=== PATIENT | female | born 1990 | race African-American/Black ===

== ENCOUNTER 2018-01-01 14:24 | Emergency (ER) | payer OTHER ==
[2018-01-01] VITALS (12 sets, daily range): PULSE 87–102
[~2018-01-01] VITALS: Ht 165.1 cm; Wt 90.7 kg
[~2018-01-01 14:24] MED LIST: PREN1CHW3 PO
--- NOTE | 2018-01-01 15:24 | PD ---
HPI Chief Complaint Dizziness, lightheadedness, dyspnea Date Seen: January 01, 2018 Travel History International Travel<30 Days: No Contact w/Intl Traveler<30Days: No Known Affected Area: No History of Present Illness HPI The patient is a pleasant 27-year-old at 25/5 weeks gestation who presents to OB triage with complaints of dizziness and lightheadedness as well as mild dyspnea beginning earlier today around 11:00. 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 She began to feel dizzy and lightheaded which prompted her evaluation here in the ED. She denies any recent sick symptoms, denies fevers or cough. She states her thus far has been uncomplicated. She denies any leakage or gush of fluid. She denies contractions. Endorses positive movements. She otherwise does not report any specific complaints or concerns. History Past Medical History Medical History: Denies Significant Hx Obstetric History Obstetric History [id number] One prior delivery One prior elective One prior miscarriage One loss at 20 weeks gestation Past Surgical History Surgical History: No Previous Surgery Family History Family History: Negative Social History Alcohol Use: No Tobacco Use: No Substance Abuse: No Allergies-Medications (Allergen,Severity, Reaction): Coded Allergies: No Known Allergies (Unverified , 04/16/16) Home Meds Active Scripts W/ Vit [id number]-Chol (Prena1 Chew 1.4 mg) 1 Chw Chw, 1 CHEW PO DAILY for PRe, #30 BOTTLE 11 Refills Prov:Abhinav Madsenvirgilio MOROCHO 10/31/15 Review of Systems Except as stated in HPI: all other systems reviewed are Neg Physical Exam Narrative GENERAL: Well-nourished, well-developed patient. SKIN: Warm and dry. HEAD: Normocephalic and atraumatic. EYES: No scleral icterus. No injection or drainage. ENT: No nasal drainage noted. Mucous membranes pink. Airway patent. NECK: Supple, trachea midline. No JVD. CARDIOVASCULAR: Regular rate and rhythm without murmurs, gallops, or rubs. RESPIRATORY: Breath sounds equal bilaterally, no w/r/r. No accessory muscle use. ABDOMEN/GI: Abdomen soft, non-tender, bowel sounds present, no rebound, no guarding Gravid to 25 weeks size GENITOURINARY: External Genitalia: intact and normal in appearance Cervix: [-] Dilatation: [-] Effacement: [-] Station: [-] Presentation: [-] Membranes: [-] Uterine Contractions: [-] FHT's: Category: [-] Baseline: 140s Reactive: +accels Variability: moderate Decels: [-] EXTREMITIES: No cyanosis or edema. BACK: Nontender without obvious deformity. No CVA tenderness. NEUROLOGICAL: Awake and alert. Motor and sensory grossly within normal limits. Normal speech. Data Data Vital Signs Reviewed: Yes Orders Orders Vital Signs (Adult) .ON ADMISSION (01/01/18 15:15) ^ Labor Status (01/01/18 15:15) ^ Non Stress Test (01/01/18 15:15) ^ Hydration (01/01/18 15:15) MDM Medical Record Reviewed: Yes Plan 27-year-old at 25/5 weeks gestation evaluated in OB triage with complaints of dizziness and lightheadedness as well as mild dyspnea. 1. Dizziness - Patient orally hydrated, encouraged good PO hydration as an outpatient - Urine dip normal, sp gravity within normal limits with no ketones - Symptoms improved s/p po hydration - Discussed with patient symptoms that would prompt a return visit to OB triage for reevaluation 2. IUP - No LOF, no contractions, +FM - Reactive FHT - Recommended continued follow up with her primary OB provider roya Field Diagnosis Diagnosis: Primary Impression: 25 weeks gestation of Disposition: DISCHARGE HOME Condition: Stable Patient Instructions: General Instructions Departure Forms: Tests/Procedures, Work Release Enter return to work date: January 02, 2018 Special Instructions: Please allow the patient to modify her work schedule to either work shorter hours daily, taking 2-3 breaks if working a whole day with each break consisting of 15-30 minutes, or allow the patient to be seated for some parts of her job due to her . Erik Pagan MD R2 January 01, 2018 15:24
== END 2018-01-01 16:27 | disposition home or self-care (01) ==
LOC: HOBED 14:24
DX: O26.892 Other specified pregnancy related conditions, second trimester (principal); R06.00 Dyspnea, unspecified; R42 Dizziness and giddiness; Z3A.25 25 weeks gestation of pregnancy
CPT/HCPCS: 99282

== ENCOUNTER → 2018-01-09 | Outpatient (CLI) | payer OTHER | LOC: HPND 08:50 | PROVIDERS: ATTEND Obstetrics & Gynecology | DX: O34.32 Maternal care for cervical incompetence, second trimester (principal); O09.212 Supervision of pregnancy with history of pre-term labor, second trimester; O09.292 Supervision of pregnancy with other poor reproductive or obstetric history, second trimester | CPT/HCPCS: 76805 ==

== ENCOUNTER → 2018-01-22 | Outpatient (CLI) | payer OTHER | LOC: HPND 08:03 | PROVIDERS: ATTEND Obstetrics & Gynecology | DX: O09.213 Supervision of pregnancy with history of pre-term labor, third trimester (principal) | CPT/HCPCS: 76815; 76817 ==

== ENCOUNTER → 2018-02-13 | Outpatient (CLI) | payer OTHER | LOC: HPND 10:08 | PROVIDERS: ATTEND Obstetrics & Gynecology | DX: O34.32 Maternal care for cervical incompetence, second trimester (principal); O09.293 Supervision of pregnancy with other poor reproductive or obstetric history, third trimester; O09.213 Supervision of pregnancy with history of pre-term labor, third trimester | CPT/HCPCS: 76816 ==

== ENCOUNTER 2018-03-22 02:49 | Inpatient (IN) ==
[2018-03-22] MEDS ORDERED: Sod Chloride 0.9% Inj 1,000 ML IV.CONT PRN (03:15)
[2018-03-22] MEDS ORDERED: Sodium Chlor 0.9% Inj 500 ML IV.SIG PRN (03:15)
[2018-03-22] MEDS ORDERED: fentaNYL Citrate Inj 100 MCG/2 ML Ampul IV.PUSH PRN ×2 (03:15)
[2018-03-22] MEDS ORDERED: Oxytocin 30 Units/500ml Premix 30 UNITS/500 ML BAG IV.SIG ONE (03:15)
[2018-03-22] MEDS ORDERED: Citric Acid/Sodium Citrate Liq 30 ML UDC PO SCH (03:15)
[2018-03-22] MEDS ORDERED: Naloxone Inj 0.4 MG/ML Vial IV.PUSH PRN (03:15)
--- NOTE | 2018-03-22 03:27 | ED ---
History of Present Illness Primary Care Physician: UNKNOWN Chief Complaint: contractions History of Present Illness: 28 yo presents at 37 wks c/o painful, regular contractions for the last 2 hours. has been uncomplicated. +FM, denies LOF or vaginal bleeding. 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 Review of Systems All other systems reviewed negative except as stated in HPI [facility] - Medical / Surgical Hx Neg / Unobtainable Medical Problems Denied: Yes Surgical History: No Previous Surgery - Tobacco History Smoking Status: Never smoker - Alcohol History How Often Do You Have a Drink Containing Alcohol: Never (since ) - Substance Use History Substance History: No History of Abuse - Travel History History of Recent Travel: No Medications and Allergies Active Medications: Active Medications Citric Acid/Sodium Citrate (Sodium Citrate/Citric Acid Liq) 30 ml PO [facility] Stop: 03/26/18 03:14 Fentanyl Citrate (Fentanyl Inj) 50 mcg IV.PUSH Q1H PRN PRN Reason: Pain Scale 3 - 5 Fentanyl Citrate (Fentanyl Inj) 100 mcg IV.PUSH Q1H PRN PRN Reason: PAIN SCALE 6 TO 10 Lactated Ringer's (Lr 1000 Ml Inj) 1,000 mls @ 125 mls/hr IV.CONT .Q8H ORIN Lactated Ringer's (Lr 1000 Ml Inj) 1,000 mls @ 3,000 mls/hr IV.SIG UNSCH PRN PRN Reason: compromise or epidural Sodium Chloride (Ns Inj) 500 mls @ 1,000 mls/hr IV.SIG UNSCH PRN PRN Reason: SEE LABEL COMMENTS Sodium Chloride (Ns Inj) 1,000 mls @ 100 mls/hr IV.CONT .Q10H PRN PRN Reason: SEE LABEL COMMENTS Oxytocin (Pitocin 30 Units/Ns 500 Ml Premix) 30 units in 500 mls @ 999 mls/hr IV.SIG BOLUS ONE Stop: 03/22/18 03:45 Lidocaine HCl (Xylocaine 1% Inj) 0.1 ml I-DERMAL PRN PRN PRN Reason: For IV start Stop: 03/25/18 03:14 Lidocaine HCl (Xylocaine 1% Inj) 10 ml INFILTRATN PRN PRN PRN Reason: For episiotomy repair Stop: 03/24/18 03:14 Mineral Oil (Muri-Lube Oil) 10 ml TOPICAL PRN PRN PRN Reason: PRN perineal massage Allergies Allergy/AdvReac Type Severity Reaction Status Date / Time No Known Allergies Allergy none Uncoded 03/20/18 21:13 Home Medications Medication Instructions Recorded Confirmed Type PNV 29-1 1 tab PO DAILY 03/20/18 03/20/18 History Exam Vital signs: Vital Signs 03/22/18 03:12 03/22/18 03:13 Temperature 98.2 F Pulse Rate 95 H Respiratory Rate 18 Blood Pressure 99/70 L - Constitutional no acute distress - Routine Neck Exam Present: supple - Routine Respiratory Exam Present: CTA bilaterally - Routine Abdominal Exam Present: soft, normoactive bowel sounds - Routine Exam Comments: sve 6/80/-2, vtx FHTs 130s, cat 1 tracing toco q 2-4 min Assessment and Plan - Diagnosis (1) Labor established Status: Acute Plan: admit epidural prn GBS neg Discharge Plan - Physicians Team ED Provider: Clifford Mccarty Primary Care Provider: UNKNOWN, - Rxs /Orders / Referrals /Forms Prescriptions: No Action PNV 29-1 1 tab PO DAILY - Discharge Instructions Print Language: Turkish
[2018-03-22 04:06] LABS: Baso % (Auto) 0.3 % (0.0-2.0); Eos # (Auto) 0.1 th/mm3 (0.0-0.4); Hematocrit 34.9 % (35.0-46.0); Hemoglobin 11.6 gm/dL (11.6-15.3); Lymph # (Auto) 1.9 th/mm3 (1.0-4.8); Lymph % (Auto) 28.6 % (9.0-44.0); Mean Corpuscular HGB Conc 33.2 % (32.0-36.0); Mean Corpuscular Hemoglobin 27.5 pg (27.0-34.0); Mean Corpuscular Volume 82.8 fL (80.0-100.0); Mean Platelet Volume 8.8 fL (7.0-11.0); Mono # (Auto) 0.4 th/mm3 (0.0-0.9); Mono % (Auto) 6.4 % (0.0-8.0); Neut # (Auto) 4.3 th/mm3 (1.8-7.7); Neut % (Auto) 63.7 % (16.0-70.0); Platelet Count 216 th/mm3 (150-450); Red Blood Count 4.22 mil/mm3 (4.00-5.30); Red Cell Distribution Width 15.3 % (11.6-17.2); White Blood Count 6.8 th/mm3 (4.0-11.0)
[2018-03-22] MEDS ORDERED: fentaNYL 2MCG-Bupiv 0.125% Epi 150 ML EPIDURAL ONE (04:06)
[2018-03-22 04:18] LABS: Amphetamine Urine With Conf Neg (Neg); Benzodiazepine Urine With Conf Neg (Neg)
--- NOTE | 2018-03-22 10:08 | P.HPOB ---
Patient Name: Andrea Williamson Date of : 89 Patient Status: Inpatient Attending Provider: Clifford Mccarty Date: 03/22/18 03:17 Initialization Date: 03/22/18 03:17 History of Present Illness Primary Care Physician: UNKNOWN Chief Complaint: contractions History of Present Illness: 28 yo presents at 37 wks c/o painful, regular contractions for the last 2 hours. has been uncomplicated. +FM, denies LOF or vaginal bleeding. 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 Review of Systems All other systems reviewed negative except as stated in HPI [facility] - Medical / Surgical Hx Neg / Unobtainable Medical Problems Denied: Yes Surgical History: No Previous Surgery - Tobacco History Smoking Status: Never smoker - Alcohol History How Often Do You Have a Drink Containing Alcohol: Never (since ) - Substance Use History Substance History: No History of Abuse - Travel History History of Recent Travel: No Medications and Allergies Active Medications: Active Medications Citric Acid/Sodium Citrate (Sodium Citrate/Citric Acid Liq) 30 ml PO [employer] [facility] Stop: 03/26/18 03:14 Fentanyl Citrate (Fentanyl Inj) 50 mcg IV.PUSH Q1H PRN PRN Reason: Pain Scale 3 - 5 Fentanyl Citrate (Fentanyl Inj) 100 mcg IV.PUSH Q1H PRN PRN Reason: PAIN SCALE 6 TO 10 Lactated Ringer's (Lr 1000 Ml Inj) 1,000 mls @ 125 mls/hr IV.CONT .Q8H [facility] Lactated Ringer's (Lr 1000 Ml Inj) 1,000 mls @ 3,000 mls/hr IV.SIG UNSCH PRN PRN Reason: compromise or epidural Sodium Chloride (Ns Inj) 500 mls @ 1,000 mls/hr IV.SIG UNSCH PRN PRN Reason: SEE LABEL COMMENTS Sodium Chloride (Ns Inj) 1,000 mls @ 100 mls/hr IV.CONT .Q10H PRN PRN Reason: SEE LABEL COMMENTS Oxytocin (Pitocin 30 Units/Ns 500 Ml Premix) 30 units in 500 mls @ 999 mls/hr IV.SIG BOLUS ONE Stop: 03/22/18 03:45 Lidocaine HCl (Xylocaine 1% Inj) 0.1 ml I-DERMAL PRN PRN PRN Reason: For IV start Stop: 03/25/18 03:14 Lidocaine HCl (Xylocaine 1% Inj) 10 ml INFILTRATN PRN PRN PRN Reason: For episiotomy repair Stop: 03/24/18 03:14 Mineral Oil (Muri-Lube Oil) 10 ml TOPICAL PRN PRN PRN Reason: PRN perineal massage Allergies Allergy/AdvReac Type Severity Reaction Status Date / Time No Known Allergies Allergy none Uncoded 03/20/18 21:13 Home Medications Medication Instructions Recorded Confirmed Type PNV 29-1 1 tab PO DAILY 03/20/18 03/20/18 History Exam Vital signs: Vital Signs 03/22/18 03:12 03/22/18 03:13 Temperature 98.2 F Pulse Rate 95 H Respiratory Rate 18 Blood Pressure 99/70 L - Constitutional no acute distress - Routine Neck Exam Present: supple - Routine Respiratory Exam Present: CTA bilaterally - Routine Abdominal Exam Present: soft, normoactive bowel sounds - Routine Exam Comments: sve 6/80/-2, vtx FHTs 130s, cat 1 tracing toco q 2-4 min Assessment and Plan - Diagnosis (1) Labor established Status: Acute Plan: admit epidural prn GBS neg Discharge Plan - Physicians Team ED Provider: Clifford Mccarty Primary Care Provider: UNKNOWN, - Rxs /Orders / Referrals /Forms Prescriptions: No Action PNV 29-1 1 tab PO DAILY - Discharge Instructions Print Language: Nigerian
--- NOTE | 2018-03-22 10:10 | P.OBLABOR ---
Subjective Interval history: pt comfortable with contractions Objective Vital Signs: Vital Signs - 8 hr 03/22/18 03:12 03/22/18 03:13 03/22/18 03:31 Temperature 98.2 F Pulse Rate 95 H 106 H Respiratory Rate 18 Blood Pressure 99/70 L 111/73 03/22/18 03:45 03/22/18 04:10 03/22/18 04:25 Temperature 98.1 F Pulse Rate 97 H 96 H Respiratory Rate 18 Blood Pressure 106/65 03/22/18 04:30 03/22/18 04:45 03/22/18 05:00 Temperature Pulse Rate 88 83 Respiratory Rate 16 16 Blood Pressure 113/71 112/76 03/22/18 06:00 03/22/18 07:00 03/22/18 07:20 Temperature 97.5 F L Pulse Rate 84 86 84 Respiratory Rate 12 18 Blood Pressure 112/80 114/70 106/73 03/22/18 07:54 03/22/18 08:00 03/22/18 08:54 Temperature Pulse Rate 88 Respiratory Rate 18 18 Blood Pressure 112/73 03/22/18 09:00 03/22/18 09:01 03/22/18 09:51 Temperature 98.2 F Pulse Rate 89 100 H Respiratory Rate 18 Blood Pressure 114/68 130/83 03/22/18 09:55 03/22/18 10:00 Temperature Pulse Rate 97 H 103 H Respiratory Rate Blood Pressure 117/68 121/70 Objective: Pelvic Exam: Cervix: [-] Dilatation: [-] Effacement: [-] Station: [-] Presentation: [-] Membranes: [intact or ruptured] Uterine Contractions: [-] FHT's: Category: [-] Baseline: [-] Reactive: [-] Variability: [-] Decels: [-] Artificial Rupture of Membrane: Yes Artificial ROM Date: 03/22/18 Artificial ROM Time: 07:30 Assessment and Plan - Diagnosis (1) Labor established Status: Acute Plan: epidural prn GBS neg
[2018-03-22] MEDS ORDERED: fentaNYL Citrate Inj 100 MCG/2 ML Ampul EPIDURAL ONE (12:00)
[2018-03-22] MEDS ORDERED: fentaNYL 2MCG-Bupiv 0.125% Epi 150 ML EPIDURAL PRN (12:00)
[2018-03-22] MEDS ORDERED: Oxytocin 30 Units/500ml Premix 30 UNITS/500 ML BAG ONE (12:49)
--- NOTE | 2018-03-22 14:11 | P.OBDELI ---
Weeks Gestation: 37 Episiotomy: none Vaginal Delivery: Spontaneous Presentation: Occiput anterior Nuchal Cord: None Delayed Cord Clamping (45 sec): Yes Placenta: Spontaneous delivery, Intact Laceration: None Estimated blood loss (mL): 150 : Male Male A Delivery Date: 03/22/18 Infant Delivery Time: 13:59 score (1 min): 8 score (5 min): 8 Attestation Attestation: The exam, history, and the medical decision-making described in the above note were completed with the assistance of the resident physician. I reviewed and agree with the findings presented. I attest that I had a [id number] encounter with the patient on the same day, and personally performed and documented my assessment and findings in the medical record.
[2018-03-22] MEDS ORDERED: Bisacodyl 10 MG Supp RECTAL PRN (14:44)
[2018-03-22] MEDS ORDERED: Witch Hazel 50%/Glyderin 12.5% 40 Pad Jar RECTAL PRN (14:44)
[2018-03-22] MEDS ORDERED: Benzocaine 20% Top Spray 60 ML Can TOPICAL PRN (14:44)
[2018-03-22] MEDS ORDERED: Acetaminophen 325 MG Tablet PO PRN (14:44)
[2018-03-22] MEDS: Ibuprofen 400 MG Tablet PO PRN (15:05)
[2018-03-22] MEDS ORDERED: Zolpidem Tartrate 5 MG Tablet PO PRN (21:00)
[2018-03-22] MEDS ORDERED: Senna/Docusate Sodium 8.6/50 MG Tablet PO SCH (21:00)
--- NOTE | 2018-03-23 07:13 | P.PNOB ---
Subjective Interval history: Patient is a 28-year-old delivered at 37 weeks and 1 days. Patient is day 1 after . Patient's pain is well-controlled. Patient reports eating and drinking without any nausea or vomiting. Patient reports minimal bleeding. Patient has passed gas but no bowel movements. Patient is walking without lower extremity pain or shortness of breath. Patient reports desire for contraception and breast-feeding. Objective Vital Signs/I&O: Vital Signs 03/22/18 07:20 03/22/18 07:54 03/22/18 08:00 Temperature 97.5 F L Pulse Rate 84 88 Respiratory Rate 18 18 Blood Pressure 106/73 112/73 03/22/18 08:54 03/22/18 09:00 03/22/18 09:01 Temperature 98.2 F Pulse Rate 89 Respiratory Rate 18 18 Blood Pressure 114/68 03/22/18 09:51 03/22/18 09:55 03/22/18 10:00 Temperature Pulse Rate 100 H 97 H 103 H Respiratory Rate Blood Pressure 130/83 117/68 121/70 03/22/18 10:30 03/22/18 11:01 03/22/18 11:30 Temperature Pulse Rate 74 79 82 Respiratory Rate Blood Pressure 106/67 95/56 L 92/58 L 03/22/18 12:00 03/22/18 12:31 03/22/18 12:38 Temperature 97.7 F Pulse Rate 73 89 Respiratory Rate 18 Blood Pressure 105/65 126/102 H 03/22/18 12:40 03/22/18 13:15 03/22/18 13:30 Temperature Pulse Rate 83 86 84 Respiratory Rate 18 Blood Pressure 110/64 110/62 119/74 03/22/18 14:01 03/22/18 14:10 03/22/18 14:11 Temperature 98.5 F Pulse Rate 128 H Respiratory Rate 18 Blood Pressure 106/50 L 110/71 03/22/18 14:21 03/22/18 14:31 03/22/18 14:45 Temperature Pulse Rate 106 H 97 H Respiratory Rate 18 18 Blood Pressure 110/66 128/68 03/22/18 14:46 03/22/18 15:00 03/22/18 16:21 Temperature 98.7 F Pulse Rate 94 H 85 Respiratory Rate 18 18 Blood Pressure 116/65 116/69 03/22/18 20:00 Temperature 98.4 F Pulse Rate 87 Respiratory Rate 18 Blood Pressure 115/63 Result Diagrams: 03/22/18 03:45 Objective Remarks: GENERAL: Well-nourished, well-developed patient. CARDIOVASCULAR: Regular rate and rhythm without murmurs, gallops, or rubs. RESPIRATORY: Breath sounds equal bilaterally. No accessory muscle use. ABDOMEN/GI: Abdomen soft, non-tender. Fundus: Firm, non-tender at umbilicus. GENITOURINARY: Light to moderate bleeding. EXTREMITIES: No cyanosis or edema, non-tender, without signs of DVT. Medications and IVs: Active Medications Acetaminophen (Tylenol) 650 mg PO Q4H PRN PRN Reason: PAIN SCALE 1 TO 2 Al Hydroxide/Mg Hydroxide (Milk Of Magnesia Liq) 30 ml PO Q12H PRN PRN Reason: Mild Constipation Benzocaine (Americaine 20% Top [place]) 1 spray TOPICAL Q4H PRN PRN Reason: For Perineum Discomfort Bisacodyl (Dulcolax Supp) 10 mg RECTAL DAILY PRN PRN Reason: SEVERE CONSITIPATION Ephedrine Sulfate (Ephedrine/Ns Syringe) 10 mg IV.PUSH UNSCH PRN PRN Reason: SEE LABEL COMMENTS Stop: 03/23/18 11:53 Lactated Ringer's (Lr 1000 Ml Inj) 1,000 mls @ 3,000 mls/hr IV.SIG UNSCH PRN PRN Reason: compromise or epidural Fentanyl/Bupivacaine/Sodium Chlor (Fentanyl 2 Mcg-Bupiv 0.125% Epi) 150 mls @ 12 mls/hr EPIDURAL UNSCH PRN PRN Reason: for Labor Pain Lactulose (Lactulose Liq) 30 ml PO DAILY PRN PRN Reason: SEVERE CONSITIPATION Miscellaneous Information (Misc Information) 1 each OTHER UNSCH PRN PRN Reason: SEE LABEL COMMENTS Stop: 03/23/18 11:53 Miscellaneous Information (Misc Information) 1 each OTHER UNSCH PRN PRN Reason: SEE LABEL COMMENTS Stop: 03/23/18 11:53 Senna/Docusate Sodium (Patrica-Colace) 1 tab PO BID ORIN Sennosides (Senokot) 17.2 mg PO Q12H PRN PRN Reason: Moderate Constipation Witch Dolores/Glycerin (Tucks Pads) 1 applicatio RECTAL QID PRN PRN Reason: HEMORRHOIDS Zolpidem Tartrate (Ambien) 5 mg PO HS PRN PRN Reason: SLEEP Assessment and Plan - Plan Patient is a 28-year-old delivered at 37 weeks and 1 days. Patient is day 1 after . Patient was counseled to do 6 weeks of pelvic rest. Patient was counseled to follow up in 6 weeks. Patient requested follow-up and contraception. --AF VSS --Continue routine care --Motrin and Tylenol when necessary for pain --Encourage OOB --Pelvic rest for 6 weeks will need follow-up appointment at that time. --Contraception: Will likely arrange as an outpatient --Anticipate discharge tomorrow
[2018-03-23] MEDS: Ibuprofen 400 MG Tablet PO PRN ×2 (07:30→16:34)
--- NOTE | 2018-03-24 08:58 | P.PNOB ---
Subjective Post day: 2 Interval history: Patient is a 28-year-old delivered at 37weeks and 1 days. Patient is day 2 after vaginal delivery. Patient's pain is well-controlled. Patient reports eating and drinking without any nausea or vomiting. Patient reports minimal bleeding. Patient has passed gas but no bowel movements. Patient is walking without lower extremity pain or shortness of breath. Patient reports desire for contraception via IUD and breast-feeding. Objective Vital Signs/I&O: Vital Signs 03/23/18 19:34 Temperature 98.5 F Pulse Rate 87 Respiratory Rate 20 Blood Pressure 114/69 Result Diagrams: 03/22/18 03:45 Objective Remarks: GENERAL: Well-nourished, well-developed patient. CARDIOVASCULAR: Regular rate and rhythm without murmurs, gallops, or rubs. RESPIRATORY: Breath sounds equal bilaterally. No accessory muscle use. ABDOMEN/GI: Abdomen soft, non-tender. Fundus: Firm, non-tender at umbilicus. GENITOURINARY: Light to moderate bleeding. EXTREMITIES: No cyanosis or edema, non-tender, without signs of DVT. Medications and IVs: Active Medications Acetaminophen (Tylenol) 650 mg PO Q4H PRN PRN Reason: PAIN SCALE 1 TO 2 Al Hydroxide/Mg Hydroxide (Milk Of Magnesia Liq) 30 ml PO Q12H PRN PRN Reason: Mild Constipation Benzocaine (Americaine 20% [place]) 1 spray TOPICAL Q4H PRN PRN Reason: For Perineum Discomfort Bisacodyl (Dulcolax Supp) 10 mg RECTAL DAILY PRN PRN Reason: SEVERE CONSITIPATION Lactated Ringer's (Lr 1000 Ml Inj) 1,000 mls @ 3,000 mls/hr IV.SIG UNSCH PRN PRN Reason: compromise or epidural Fentanyl/Bupivacaine/Sodium Chlor (Fentanyl 2 Mcg-Bupiv 0.125% Epi) 150 mls @ 12 mls/hr EPIDURAL UNSCH PRN PRN Reason: for Labor Pain Lactulose (Lactulose Liq) 30 ml PO DAILY PRN PRN Reason: SEVERE CONSITIPATION Senna/Docusate Sodium (Patrica-Colace) 1 tab PO BID ORIN Last Admin: 03/24/18 08:45 Dose: 1 tab Sennosides (Senokot) 17.2 mg PO Q12H PRN PRN Reason: Moderate Constipation Witch Dolores/Glycerin (Tucks Pads) 1 applicatio RECTAL QID PRN PRN Reason: HEMORRHOIDS Zolpidem Tartrate (Ambien) 5 mg PO HS PRN PRN Reason: SLEEP Assessment and Plan - Diagnosis (1) Vaginal delivery Code(s): O80 - Encounter for full-term uncomplicated delivery Status: Acute - Plan Patient is a 28-year-old delivered at 37 weeks and 1 days. Patient is day 2 after . Patient was counseled to do 6 weeks of pelvic rest. Patient was counseled to follow up in 6 weeks. Patient requested follow-up and contraception via IUD. --Motrin and Tylenol when necessary for pain --Encourage OOB --Pelvic rest for 6 weeks will need follow-up appointment at that time. --Contraception: Will likely arrange as an outpatient --Discharge today
== END 2018-03-24 14:20 | disposition home or self-care (01) ==
LOC: HOBED 02:49 → H2E 03:25 → H1EA 16:15
PROVIDERS: ADMIT Obstetrics & Gynecology; ATTEND Obstetrics & Gynecology